=== PATIENT | female | born 1950 | race Caucasian/White ===

== ENCOUNTER → 2022-02-23 12:04 | Outpatient (CLI) | payer MEDICARE, SELFPAY ==
--- NOTE | 2022-02-23 | DI.MRI.S_ITS ---
PROCEDURE: MR SHOULDER LT WO CON INDICATIONS: Strain of muscle, fascia and tendon of long head of biceps, TECHNIQUE: Noncontrast oblique coronal T2 fast spin echo with fat saturation, oblique sagittal T1 spin echo and T2 fast spin echo with fat saturation, axial T1 spin echo and T2 fast spin echo with fat saturation through the shoulder. COMPARISON: None. FINDINGS: Image quality: Excellent. Rotator cuff: Amorphous calcifications are noted involving distal supraspinatus and infraspinatus near their insertion on the humeral head suggestive of hydroxyapatite deposition disease. Tendinosis and low to moderate grade articular and bursal surface partial thickness tear involving distal supraspinatus at their insertion on the humeral head is seen extending to musculotendinous junction. Low-grade partial-thickness tear involving superior fibers of distal subscapularis is seen. No full-thickness rotator cuff tendon rupture. Sagittal images demonstrate mild supraspinatus muscle atrophy. Bones and bursae: No bone marrow contusions or fractures. Mild to moderate acromioclavicular joint osteoarthritic changes are seen with downward osteophyte formation depressing the musculotendinous junction of supraspinatus. Mild to moderate glenohumeral joint osteoarthritic changes also seen. There is moderate amount of subacromial subdeltoid bursal fluid. Capsule and soft tissues: Fraying of superior anterior labrum at 1 to 2 o'clock position is seen suggestive of superior anterior labral tear. There is also signal abnormality involving anterior inferior labrum at 4 to 6 o'clock position. The long head of the biceps tendon demonstrates normal location and morphology. The rotator interval appears normal, without fibrosis. The coracohumeral ligament is normal in thickness. IMPRESSION: 1. Suggestion of calcific tendinitis involving distal supraspinatus and infraspinatus at their insertion on the humeral head. Moderate grade articular and bursal surface partial thickness tear also seen involving distal supraspinatus and infraspinatus extending to musculotendinous junction. Low-grade partial-thickness tear involving superior fibers of distal subscapularis. No full-thickness rotator cuff tendon rupture. Mild supraspinatus muscle atrophy. 2. Mild to moderate acromioclavicular joint and glenohumeral joint osteoarthritis. No fracture or dislocation. Moderate subacromial subdeltoid bursal fluid. 3. Suggestion of superior anterior labral tear at 1 to 2 o'clock position and anterior-inferior labral tear at 4 to 6 o'clock position. 4. Proximal intra-articular portion of long head of biceps tendon is intact. Dictated by: Rob Nuñez M.D. on 02/23/2022 at 13:28 Approved by: Rob Nuñez M.D. on 02/23/2022 at 13:33
== END ==
PROVIDERS: Referring Provider Counselor Mental Health; Visit Provider Counselor Mental Health
DX: S43.492A Other sprain of left shoulder joint, initial encounter (principal); S46.112A Strain of muscle, fascia and tendon of long head of biceps, left arm, initial encounter; M75.112 Incomplete rotator cuff tear or rupture of left shoulder, not specified as traumatic; M19.012 Primary osteoarthritis, left shoulder
CPT/HCPCS: 73221